=== PATIENT | female | born 1955 | race Caucasian/White ===

== ENCOUNTER 2019-04-08 15:46 | Emergency (ER) | payer SELFPAY, OTHER | END 2019-04-08 16:44 | disposition left against medical advice (07) | LOC: E/R 15:46 | DX: Z53.21 Procedure and treatment not carried out due to patient leaving prior to being seen by health care provider (principal) ==

== ENCOUNTER → 2019-04-09 | Emergency (ER) | payer MEDICARE, OTHER ==
[2019-04-09] MEDS: LIDOCAINE 1% (MDV) 20 ML INJ SC (14:11)
[2019-04-09] MEDS: CEFTRIAXONE 1 GM INJ IM (14:11)
== END | disposition home or self-care (01) ==
LOC: FTE 13:10
DX: L02.211 Cutaneous abscess of abdominal wall (principal); E11.9 Type 2 diabetes mellitus without complications
CPT/HCPCS: 96372; 99284-25; J0696